=== PATIENT | male | born 1960 | race Caucasian/White ===

== ENCOUNTER 2016-05-28 05:19 | Inpatient (IN) | payer BC ==
[2016-05-12 13:21] VITALS: BMI 25.0
--- NOTE | 2016-05-12 14:35 | DIAGNOSTIC IMAGING REPORT ---
CHEST PREADMISSION(PA/LAT) CLINICAL HISTORY: Preoperative chest COMPARISON STUDY: No previous studies for comparison. FINDINGS: The cardiac and mediastinal contours are normal. There is no evidence of focal pulmonary consolidation. There is no evidence of failure. No pleural effusions are visualized.[ There is minor basilar interstitial thickening. IMPRESSION: Minor basilar interstitial thickening, likely chronic. No evidence of failure. No evidence of lobar consolidation Electronically signed by: Yogesh Joy M.D. 05/12/2016 2:34 PM
[2016-05-12 14:55] LABS: BASO % 0.3 %; BASO ABS # 0.03 K/uL (0-0.2); COMPLETE YES; EOS % 7.8 %; HEMATOCRIT 46.7 % (42-52); IG% 0.1 %; LYMPH % 21.7 %; LYMPH ABS # 1.87 K/uL (1.2-3.4); MEAN CORPUSCULAR HEMOGLOBIN 33.4 pg (25-34); MEAN CORPUSCULAR HGB CONC 35.5 g/dl (32-36); MEAN PLATELET VOLUME 11.2 fL (7.4-10.4); MONO % 8.6 %; NEUT % 61.5 %; PLATELET COUNT 194 K/uL (130-400); RED BLOOD COUNT 4.97 M/uL (4.7-6.1); WHITE BLOOD COUNT 8.61 K/uL (4.8-10.8)
[2016-05-12 15:08] LABS: URINE APPEARANCE CLEAR (CLEAR); URINE BILIRUBIN NEG (NEG); URINE COLOR YELLOW; URINE NITRITE NEG (NEG); URINE PH 6.5 (4.5-7.5); URINE SPECIFIC GRAVITY 1.009 (1.000-1.030); UROBILINOGEN NEG (NEG)
[2016-05-12 15:19] LABS: CALCIUM 8.9 mg/dl (8.5-10.1); CREATININE 0.91 mg/dl (0.60-1.40); POTASSIUM 3.9 mmol/L (3.5-5.1)
[2016-05-12 15:25] LABS: MANUAL MICROSCOPIC REQUIRED? NO; REVIEW REQ? NO
[~2016-05-28] VITALS: Ht 177.8 cm; Wt 81.2 kg
[2016-05-28] VITALS (8 sets, daily range): BP systolic 91–124; BP diastolic 52–72; PULSE 53–70; TEMP 36.3–36.9; O2SAT 92–97; Ht 177.8 cm; Wt 81.2 kg
[~2016-05-28 05:19] MED LIST: Pt states none
[2016-05-28] MEDS ORDERED: HEPARIN SOD 5000 UNIT/0.5 ML CARP SQ SCH (06:00)
[2016-05-28] MEDS ORDERED: CEFAZOLIN 2000 MG/60 ML D5W 60 ML IV SCH (06:00)
[2016-05-28] MEDS ORDERED: LACTATED RINGER'S 1000ML 1,000 ML IV SCH (06:00)
[2016-05-28] MEDS ORDERED: MIDAZOLAM HCL 1 MG/ML 2ML VIAL ONE (06:49)
[2016-05-28] MEDS ORDERED: FENTANYL CITRATE INJ 50 MCG/1 ML 2 ML VIAL ONE (06:49)
[2016-05-28] MEDS ORDERED: KETAMINE HCL INJ 50 MG/ML 10 ML VIAL ONE (06:49)
[2016-05-28] MEDS ORDERED: HYDROmorphone INJ 2 MG/ML SYR/VIAL ONE (06:50)
--- NOTE | 2016-05-28 07:05 | History & Physical Bridge Note ---
H&P Re-Evaluation Bridge Note: I have examined the patient, reviewed the History & Physical and in the interval since the performance of the History & Physical I have noted the following changes of clinical significance: No changes noted
[2016-05-28] MEDS ORDERED: FENTANYL CITRATE INJ 50 MCG/1 ML 2 ML VIAL IV PRN (07:30)
[2016-05-28] MEDS ORDERED: HYDROmorphone INJ 1 MG/ML SYR IV PRN ×2 (07:30→11:00)
[2016-05-28] MEDS ORDERED: EpHEDrine SULFATE INJ 50 MG/ML AMP IV PRN (07:30)
[2016-05-28] MEDS ORDERED: ONDANSETRON INJ 2 MG/ML 2 ML VIAL IV PRN ×2 (07:30→11:00)
[2016-05-28] MEDS ORDERED: ATROPINE SULFATE 0.1 MG/ML 5ML SYR IV PRN (07:30)
[2016-05-28] MEDS ORDERED: DEXAMETHASONE SOD INJ 4 MG/ML VIAL ONE (08:11)
[2016-05-28] MEDS ORDERED: PROPOFOL IV EMULSION 10 MG/ML 20 ML VIAL IV ONE (08:11)
[2016-05-28] MEDS ORDERED: EpHEDrine SULFATE 50MG/5ML SYR ONE (08:11)
[2016-05-28] MEDS ORDERED: GLYCOPYRROLATE INJ 0.2 MG/ML VIAL ONE (08:11)
[2016-05-28] MEDS ORDERED: ONDANSETRON INJ 2 MG/ML 2 ML VIAL ONE (08:11)
[2016-05-28] MEDS ORDERED: NEOSTIGMINE METHYLSULFATE 5 MG/5 ML SYR ONE (08:11)
[2016-05-28] MEDS ORDERED: ROCURONIUM BROMIDE 10 MG/ML 5 ML VIAL ONE ×2 (08:11→09:12)
[2016-05-28] MEDS ORDERED: METOCLOPRAMIDE HCL INJ 5 MG/ML 2 ML VIAL ONE (08:11)
[2016-05-28] MEDS ORDERED: LIDOCAINE HCL 2% 2 ML VIAL (20MG/ML) ONE (08:11)
[2016-05-28] MEDS ORDERED: SODIUM CHLORIDE 0.9% INJ 10 ML VIAL ONE (08:13)
[2016-05-28] MEDS ORDERED: BUPIVACAINE 0.5 % 5 MG/1 ML MPF 30ML VIAL INJ ONE (08:42)
[2016-05-28] MEDS ORDERED: FLOSEAL HEMOSTATIC MATRIX 10ML TOP ONE (10:29)
--- NOTE | 2016-05-28 10:55 | [facility] Post Operative Brief Note ---
Immediate Operative Summary Operative Date May 28, 2016. Pre-Operative Diagnosis cT1c [place] 3+3 Prostate cancer Post-Operative Diagnosis Same as preoperative diagnosis Procedure(s) Performed Laparoscopic Robot assisted radical retropubic prostatectomy, laparoscopic lysis of adhesions Brodie Surgeon Dr. Aj Turcios Surgical Supply Assistant Surgeon(s) NANETTE Durand Estimated Blood Loss 250 mL Findings Watertight anastomosis Specimens Permanent specimens A: Periprostatic fat B: Prostate and seminal vesicles Drains #10 CAMILLA drain, 18 fr hassan 10 cc H2O Anesthesia GAET + local Complication(s) None Disposition Recovery Room / PACU
[2016-05-28] MEDS ORDERED: OXYCODONE/ACETAMINOPHEN 7.5-325 TAB PO PRN (11:00)
[2016-05-28] MEDS ORDERED: OXYBUTYNIN CHLORIDE 5 MG TAB PO PRN (11:00)
[2016-05-28] MEDS ORDERED: KETOROLAC TROMETHAMINE 30 MG/ML VIAL IV. PRN (11:00)
[2016-05-28 11:21] LABS: HEMATOCRIT 45.6 % (42-52); MEAN CELL VOLUME 93.1 fL (80-100); MEAN CORPUSCULAR HEMOGLOBIN 33.9 pg (25-34); MEAN PLATELET VOLUME 11.1 fL (7.4-10.4); PLATELET COUNT 191 K/uL (130-400); WHITE BLOOD COUNT 14.99 K/uL (4.8-10.8)
[2016-05-28 11:28] LABS: MEAN CORPUSCULAR HGB CONC 36.4 g/dl (32-36)
[2016-05-28 11:50] LABS: BUN/CREATININE RATIO 18.2 (10-20); CALCIUM 8.4 mg/dl (8.5-10.1); CREATININE 0.94 mg/dl (0.60-1.40); POTASSIUM 4.1 mmol/L (3.5-5.1)
--- NOTE | 2016-05-28 12:19 | Anesthesiology Progress Note ---
Anesthesia Post Op Note Date & Time May 28, 2016 at 12:18 Vital Signs Pain Intensity: 2 Vital Signs Past 12 Hours Date Time Temp Pulse Resp B/P Pulse Ox O2 Delivery O2 Flow Rate FiO2 05/28/16 12:05 36.5 63 16 134/71 98 Nasal Cannula 2 05/28/16 11:55 36.5 63 16 134/71 97 Nasal Cannula 2 05/28/16 11:45 65 16 129/73 99 Nasal Cannula 2 05/28/16 11:35 69 16 133/99 100 Nasal Cannula 2 05/28/16 11:25 67 16 129/80 100 Mask 10 05/28/16 11:15 68 12 125/78 97 Mask 10 05/28/16 11:08 36.2 67 12 121/73 99 10 05/28/16 05:39 36.5 53 18 124/71 97 Room Air Notes Mental Status: alert / awake / arousable, participated in evaluation Pt Amnestic to Procedure: Yes Nausea / Vomiting: adequately controlled Pain: adequately controlled Airway Patency, RR, SpO2: stable & adequate BP & HR: stable & adequate Hydration State: stable & adequate Anesthetic Complications: no major complications apparent
--- NOTE | 2016-05-28 13:23 | OPERATIVE REPORT ---
DATE OF OPERATION: 05/28/2016 PREOPERATIVE DIAGNOSIS: Clinical T1c, [place] 3+3 adenocarcinoma of the prostate. POSTOPERATIVE DIAGNOSIS: Same. PROCEDURES: Laparoscopic lysis of adhesions (25 minutes), robotic-assisted laparoscopic radical retropubic prostatectomy with bilateral nerve sparing dissection. SURGEON: Dr. Aj Turcios. OB/GYN NURSE: NANETTE Durand. ANESTHESIA: General anesthesia with endotracheal intubation plus local at port sites. ESTIMATED BLOOD LOSS: 250 mL. URINE OUTPUT: 350 mL. IV FLUIDS: 1300 mL of crystalloid. SPECIMENS SENT TO PATHOLOGY: Periprostatic fat, prostate plus seminal vesicles. DRAINS LEFT IN PLACE: Include an 18 Khmer silicone Gonzáles catheter to gravity drainage with 10 mL of sterile water in the balloon and left lower quadrant #10 CAMILLA drain to gravity drainage. FINDINGS: Watertight anastomosis, excellent hemostasis after completion, copious right lower quadrant bowel adhesions to the anterior abdominal wall requiring laparoscopic lysis of adhesions prior to initiation of robotic surgery. COMPLICATIONS: None. BRIEF HISTORY: Mr. Laura is a pleasant 56-year-old male who has been diagnosed with [place] 3+3 adenocarcinoma of the prostate as an outpatient by my partner, Dr. Yovany Matute. Please see H\T\P for further details. After discussion of risks and benefits of various forms of intervention, she has decided upon a robotic prostatectomy to manage his disease and is being admitted for this purpose. Intravenous cephalosporins are provided for antibiotic coverage and subcutaneous heparin and SCDs are used for DVT prophylaxis. DESCRIPTION OF PROCEDURE: The patient was properly identified and brought to the operative suite. After identification of appropriate consent on the chart, general anesthesia with endotracheal intubation was initiated. The patient was prepped and draped in a standard fashion for this procedure. time study engineer-out procedure was followed. A 12 mm incision was made after instillation of local anesthesia in the supraumbilical location and abdomen was entered under direct visualization using a visual obturator and a 0 degrees lens. No evidence of bowel or intra-abdominal injury on entry into the abdomen was appreciated. Abdomen was insufflated to 15 mmHg. Left side of the abdomen was noted to be clear, but in the right lower quadrant numerous adhesions of the bowel and omentum to the anterior abdominal wall within the surgical field for robotic prostatectomy were appreciated. Two left-sided 7 mm robotic ports were placed and these were used along with cold scissors and Kittner to remove the adhesions from the anterior abdominal wall. Ports were placed on the right hand side in the form of a 7 mm robotic port, 12 mm technology assistant port and 5 mm technology assistant port in a staged fashion with each being inserted at the area was cleared. After this was completed, some residual right upper quadrant adhesions were appreciated but these were left in situ as they were no longer within the surgical field. Some left lower quadrant adhesions to the bowel outside the plane of the surgical dissection were also left as is. A total of 25 minutes was used for placement of the ports and laparoscopic lysis of adhesions. After this was complete robot was brought in and docked. A 0 degrees lens was used to drop the bladder down to the level of the pubic arch. The pelvis was entered and the prostate was defatted. Fat removed from the prostate gland was sent as periprostatic fat for pathologic analysis. A well-defined endopelvic fascia was sharply entered on both sides using hook cautery and blunt dissection was carried out to the level of the apex of the prostate. The neurovascular bundles were identified and nerve sparing dissection was initiated. A dorsal vein was skeletonized and puboprostatic ligaments were incised and relaxed. A qazifr-[id number]-vhwrf suture using an 0 Vicryl suture on a CT1 needle was used to control the dorsal venous complex in a [id number]-[id number] fashion. After this was complete, a 30 degree down lens was placed and fourth arm was used to place the bladder neck on traction. Bladder neck was dissected down to the level of the Gonzáles catheter bluntly for the most part and the catheter was brought in via the anterior vesicotomy and used for anterior traction on the prostate gland. Posterior bladder neck was divided and dropped down to the level of the seminal vesicles and vas deferens in the midline. An excellent aperture bladder neck with the ureteral orifices were removed from the level of dissection were appreciated. The vas was circumscribed and divided on both sides. Seminal vesicles were dissected free using cautery and bipolar as necessary. Some bleeding from the feeding vessel of the seminal vesicle deep on the right hand side was responsible for the majority of the blood loss during the case. Cold scissors were used to drop the rectum down to the level of the apex of the prostate and the pedicles were skeletonized. A well vascularized prostate was appreciated. Using Weck clips and bipolar as necessary the prosthetic pedicles were clipped and divided. At the level of the neurovascular bundles, cold scissors and clips were used as necessary to complete a full nerve sparing dissection on both sides down to the level of the apex. Bipolar was used judiciously for bleeding vessels as necessary. This dissection was carried out on both sides with excellent nerve sparing appreciated. After this was complete at the level of the apex, the Gonzáles catheter was replaced and the dorsal vein was divided down to the level of the urethra. Urethra was skeletonized and divided. Rectourethralis fibers were removed and completion of nerve sparing dissection was undertaken at this point. Good hemostasis was appreciated from the level of the rectum. The rectum was insufflated with air under saline irrigation and noted to be free of injury. A 10 mL of FloSeal tissue sealant were placed on the prostatic bed and attention was turned to the bladder neck where good urine production with excellent repair aperture were noted. Using a double armed V-Loc running suture, a circumferential running anastomosis to an excellent urethral stump was performed. Silicone Gonzáles catheter was visualized entering the bladder prior to completion of closure. The anastomosis was tested with greater than 120 mL of sterile water in the bladder under stress with no evidence of leak. Ten mL of sterile water were placed in the balloon and catheter was placed to gravity drainage. Small oozing vessels were appreciated and controlled using bipolar cautery as necessary. After completion of the anastomosis and additional 10 mL of FloSeal tissue sealant for additional hemostasis was performed. After this, excellent hemostasis within the pelvis was noted. Fourth arm was removed and a #10 CAMILLA drain was brought in via the fourth arm port. This was placed within the pelvis while avoiding placing it directly over the anastomosis. Robotic instruments were removed and robot was dedocked and removed. The camera was brought in via the 12 mm technology assistant port and string to the EndoCatch bag were brought out through the supraumbilical port. This was enlarged sufficiently to allow for removal of the specimen bag with no difficulties. Fascia was then closed using a 0 Vicryl suture on a UR-5 needle. Skin incisions were closed using 4-0 Monocryl and Dermabond as necessary. A 2-0 silk was used to secure the drain in place. Excess carbon dioxide gas had been removed from the abdomen prior to completion of closure. Anesthesia was reversed. The patient was transferred to recovery room in stable condition. FOLLOWUP CARE: The patient will be transferred to the floor for standard postoperative management. I attest to the content of the Intraoperative Record and any orders documented therein. Any exceptions are noted below. [facility]
[2016-05-28] MEDS: LACTATED RINGER'S 1000ML 1,000 ML IV SCH ×2 (13:49→21:51)
[2016-05-28] MEDS: ACETAMINOPHEN 500 MG TAB PO SCH ×3 (13:49→23:46)
[2016-05-28] MEDS: CEFAZOLIN IV 2,000 MG in DEXTROSE 5% 50ML 50 ML IV SCH ×2 (15:49→23:46)
[2016-05-28] MEDS ORDERED: NURSING VERBAL MED ORDER ONE (20:00)
[2016-05-28] MEDS ORDERED: METOCLOPRAMIDE HCL INJ 5 MG/ML 2 ML VIAL IV PRN (20:00)
[2016-05-28] MEDS: DOCUSATE SODIUM 100 MG CAP PO SCH (20:50)
[2016-05-28] MEDS: HEPARIN SOD 5000 UNIT/0.5 ML CARP SQ SCH (20:50)
[2016-05-29 03:36] VITALS: BP 95/57; PULSE 55; TEMP 36.7; O2SAT 95
[2016-05-29] MEDS: ACETAMINOPHEN 500 MG TAB PO SCH ×2 (06:30→13:56)
--- NOTE | 2016-05-29 07:39 | Anesthesiology Progress Note ---
Anesthesia Post Op Note Date & Time May 29, 2016 at 07:38 Vital Signs Vital Signs Past 12 Hours Date Time Temp Pulse Resp B/P Pulse Ox O2 Delivery O2 Flow Rate FiO2 05/29/16 03:36 36.7 55 16 95/57 95 Room Air 05/29/16 00:04 Room Air 05/28/16 23:34 36.9 57 16 91/52 92 Room Air Notes Mental Status: alert / awake / arousable, participated in evaluation Pt Amnestic to Procedure: Yes Nausea / Vomiting: adequately controlled Pain: adequately controlled Airway Patency, RR, SpO2: stable & adequate BP & HR: stable & adequate Hydration State: stable & adequate Anesthetic Complications: no major complications apparent
[2016-05-29 07:46] LABS: BASO % 0.1 %; BASO ABS # 0.01 K/uL (0-0.2); COMPLETE YES; EOS % 0.4 %; HEMATOCRIT 36.7 % (42-52); IG% 0.3 %; LYMPH % 11.7 %; LYMPH ABS # 1.32 K/uL (1.2-3.4); MEAN CORPUSCULAR HEMOGLOBIN 32.6 pg (25-34); MEAN CORPUSCULAR HGB CONC 35.4 g/dl (32-36); MEAN PLATELET VOLUME 11.5 fL (7.4-10.4); MONO % 10.3 %; NEUT % 77.2 %; PLATELET COUNT 159 K/uL (130-400); RED BLOOD COUNT 3.99 M/uL (4.7-6.1)
[2016-05-29 08:01] LABS: BUN/CREATININE RATIO 19.6 (10-20); CALCIUM 8.3 mg/dl (8.5-10.1); CREATININE 0.73 mg/dl (0.60-1.40); POTASSIUM 3.9 mmol/L (3.5-5.1)
[2016-05-29 08:24] VITALS: BP 91/49; PULSE 52; TEMP 36.8; O2SAT 98
[2016-05-29] MEDS: LACTATED RINGER'S 1000ML 1,000 ML IV SCH (08:54)
[2016-05-29] MEDS: DOCUSATE SODIUM 100 MG CAP PO SCH (08:54)
[2016-05-29] MEDS: CEFAZOLIN IV 2,000 MG in DEXTROSE 5% 50ML 50 ML IV SCH (08:54)
[2016-05-29] MEDS: HEPARIN SOD 5000 UNIT/0.5 ML CARP SQ SCH (09:02)
--- NOTE | 2016-05-29 10:09 | Progress Note ---
Subjective Date of Service: May 29, 2016. Subjective Pt evaluation today including: conversation w/ patient, conversation w/ family , physical exam, chart review, lab review Voiding: hassan catheter in place 56 year old male POD #1 robotic assisted laparoscopic prostatectomy. He is doing well post op. Noted nausea last evening but was medicated and feeling better. Ambulating in hallways. Tolerating clear liquids and passing flatus. Pain is controlled with Toradol and Tylenol. Hassan intact draining light east red urine. No clots. CAMILLA draining about 250 ml serosang fluid AFVSS- slightly bradycardic. White count is coming down. Note his Hgb has dropped from 16.6 to 13.0. Review of Systems Constitutional: No chills, No fever Eyes: No worsening of vision ENT: No hearing loss Respiratory: No cough, No dyspnea on exertion, No shortness of breath, No wheezing Cardiac: No chest pain Abdomen: + nausea, + see HPI, No pain Musculoskeletal: No joint pain Male : + see HPI Neurologic: No memory loss Psychiatric: No depression symptoms Endo: No fatigue Skin: No rash Objective Vital Signs Date Time Temp Pulse Resp B/P Pulse Ox O2 Delivery O2 Flow Rate FiO2 05/29/16 08:24 36.8 52 16 91/49 98 Room Air 05/29/16 08:00 Room Air 05/29/16 03:36 36.7 55 16 95/57 95 Room Air 05/29/16 00:04 Room Air 05/28/16 23:34 36.9 57 16 91/52 92 Room Air 05/28/16 16:49 36.3 69 16 103/67 94 Room Air 05/28/16 15:45 36.4 67 16 100/64 95 Room Air 05/28/16 15:30 Room Air 05/28/16 14:42 70 16 105/68 94 Room Air 05/28/16 14:16 36.3 65 16 104/66 95 Room Air 05/28/16 14:15 Room Air 05/28/16 13:47 67 18 115/72 94 Room Air 05/28/16 12:41 Room Air 05/28/16 12:28 36.4 65 18 115/72 94 Room Air 05/28/16 12:05 36.5 63 16 134/71 98 Nasal Cannula 2 05/28/16 11:55 36.5 63 16 134/71 97 Nasal Cannula 2 05/28/16 11:45 65 16 129/73 99 Nasal Cannula 2 05/28/16 11:35 69 16 133/99 100 Nasal Cannula 2 05/28/16 11:25 67 16 129/80 100 Mask 10 05/28/16 11:15 68 12 125/78 97 Mask 10 05/28/16 11:08 36.2 67 12 121/73 99 10 Physical Exam General Appearance: WD/WN, no apparent distress Eyes: normal inspection ENT: hearing grossly normal Neck: supple, no JVD Respiratory/Chest: no respiratory distress, no accessory muscle use Abdomen: soft Extremities: normal range of motion Neurologic/Psychiatric: alert, normal mood/affect, oriented x 3 Skin: normal color, warm/dry, no rash Laboratory Results Last 24 Hours Test 05/28/16 11:12 05/29/16 06:50 White Blood Count 14.99 K/uL 11.30 K/uL Red Blood Count 4.90 M/uL 3.99 M/uL Hemoglobin 16.6 g/dL 13.0 g/dL Hematocrit 45.6 % 36.7 % Mean Corpuscular Volume 93.1 fL 92.0 fL Mean Corpuscular Hemoglobin 33.9 pg 32.6 pg Mean Corpuscular Hemoglobin Concent 36.4 g/dl 35.4 g/dl RDW Standard Deviation 42.9 fL 42.3 fL RDW Coefficient of Variation 12.6 % 12.5 % Platelet Count 191 K/uL 159 K/uL Mean Platelet Volume 11.1 fL 11.5 fL Sodium Level 141 mmol/L 138 mmol/L Potassium Level 4.1 mmol/L 3.9 mmol/L Chloride Level 106 mmol/L 104 mmol/L Carbon Dioxide Level 27 mmol/L 24 mmol/L Anion Gap 8.0 mmol/L 10.0 mmol/L Blood Urea Nitrogen 17 mg/dl 14 mg/dl Creatinine 0.94 mg/dl 0.73 mg/dl Est Creatinine Clear Calc Drug Dose 88.4 ml/min 113.9 ml/min Estimated GFR () 103.2 118.5 Estimated GFR (Non- 89.0 102.2 BUN/Creatinine Ratio 18.2 19.6 Random Glucose 131 mg/dl 94 mg/dl Calcium Level 8.4 mg/dl 8.3 mg/dl Neutrophils (%) (Auto) 77.2 % Lymphocytes (%) (Auto) 11.7 % Monocytes (%) (Auto) 10.3 % Eosinophils (%) (Auto) 0.4 % Basophils (%) (Auto) 0.1 % Neutrophils # (Auto) 8.74 K/uL Lymphocytes # (Auto) 1.32 K/uL Monocytes # (Auto) 1.16 K/uL Eosinophils # (Auto) 0.04 K/uL Basophils # (Auto) 0.01 K/uL Immature Granulocyte % (Auto) 0.3 % Immature Granulocyte # (Auto) 0.03 K/uL Assessment and Plan s/p RALP Pt doing well post op Will increase diet If tolerating diet and pain is controlled okay to discharge after lunch. Hassan to leg and cath care teaching. D/C CAMILLA and IVF only after tolerating lunch and prior to discharge. Scripts for cipro, oxybutynin, zofran, toradol and colace on his chart.
[2016-05-29] MEDS ORDERED: ONDA4TAB10 SL (10:16)
[2016-05-29] MEDS ORDERED: KETO10TA PO (10:16)
[2016-05-29] MEDS ORDERED: DTR5 PO (10:16)
[2016-05-29] MEDS ORDERED: CIPR-255 PO (10:16)
[2016-05-29] MEDS ORDERED: CLC100 PO (10:16)
--- NOTE | 2016-05-29 10:18 | Discharge Instructions ---
Discharge Instructions Admission Reason for Admission: Prostate Cancer Discharge Discharge Diagnosis / Problem: Prostate Cancer Discharge Goals Goal(s): Improve function, Increase independence, Prevent Disease Progression Activity Recommendations Activity Limitations: per Instructions/Follow-up section . Instructions / Follow-Up Instructions / Follow-Up 1. Do not lift >15lbs x 6 weeks. 2. No heavy exercise x 6 weeks. You may engage in light activity such as walking and stairs as tolerated. 3. No sexual intercourse until cleared by Dr. Turcios or Dr. Hahn. 4. Do not drive x [address] while taking narcotics. 5. Finish all of the antibiotic you have been prescribed. 6. Immediately call our office at [phone] if your catheter is removed for any reason. 7. Follow-up as scheduled. Please call our office at [phone] if you need to reschedule for any reason. . Current Hospital Diet Hospital Diet(s): Regular Diet Discharge Diet Recommended Diet: Regular Diet Procedures Procedures Performed: Laparoscopic Robot assisted radical retropubic prostatectomy, laparoscopic lysis of adhesions DaVinci Pending Studies Studies pending at discharge: no Medical Emergencies . Who to Call and When: Medical Emergencies: If at any time you feel your situation is an emergency, please call 911 immediately. . Non-Emergent Contact Non-Emergency issues call your: Primary Care Provider, Urologist Call Non-Emergent contact if: temperature is above 101 . . "Provider Documentation" section prepared by Rosio Rivas. VTE Core Measure Inpt VTE Proph given/why not?: Unfractionated heparin SQ, SCD's
[2016-05-29 11:13] VITALS: BP 101/61; PULSE 55; TEMP 36.7; O2SAT 97
[2016-05-29] MEDS ORDERED: ACETAMINOPHEN 500 MG TAB PO ONE (13:46)
[2016-05-29 13:49] VITALS: BP 101/61; PULSE 55; TEMP 36.7; O2SAT 97
--- NOTE | 2016-06-09 11:52 | DISCHARGE SUMMARY ---
ADMITTING DIAGNOSIS: [place] 3+3 adenocarcinoma of the prostate. DISCHARGE DIAGNOSIS: Same. PROCEDURES OVER THE COURSE OF ADMISSION: Include a robot-assisted laparoscopic radical retropubic prostatectomy on 05/28/2016. ADMITTING ATTENDING: Dr. Aj Turcios. COMPLICATIONS: None. BRIEF HISTORY: Mr. Laura is a pleasant 56-year-old male who has seen my partner Dr. Yovany Matute in the past and been diagnosed with [place] 3+3 adenocarcinoma of the prostate after prostate biopsy for an elevated PSA. Please see H\T\P for further details. After discussion of risks and benefits of various forms of intervention, he has decided upon a robotic prostatectomy to manage his disease. Seeing his low-grade disease, nerve sparing dissection with no lymph node dissection is planned. He is being admitted for this purpose. HOSPITAL COURSE: The patient was admitted to the hospital on 05/28/2016 after uncomplicated robotic prostatectomy. Please see operative report for further details. Over the course of the patient's admission, diet and activity were rapidly advanced. By postoperative day #1, the patient's lab work was stable. He was tolerating a p.o. diet, ambulatory in the hallways and comfortable on oral pain medication. Please see progress notes for further details. He was considered stable for discharge home with Gonzáles catheter in place after removal of his CAMILLA tube on postoperative day #1. DISCHARGE INSTRUCTIONS: Please see discharge instruction list and medication list for discharge meds and activity limitations. Postoperative appointment with trial of void and pathology discussion are confirmed. The patient is instructed to contact our service should he note any fevers, chills, nausea, vomiting or other significant difficulties in the postoperative period.
== END 2016-05-29 14:08 | disposition home or self-care (01) | DRG 714 ==
LOC: ENRESERVDT → ENRESERVTM → C.ACU 05:19 → C.MSW 11:01
PROVIDERS: ADMIT Urology; ATTEND Urology
PROC: 8E0W4CZ Robotic Assisted Procedure of Trunk Region, Percutaneous Endoscopic Approach (ICD-10-PCS; 2016-05-28)
PROC: 0DNW4ZZ Release Peritoneum, Percutaneous Endoscopic Approach (ICD-10-PCS; 2016-05-28)
PROC: 0VT08ZZ Resection of Prostate, Via Natural or Artificial Opening Endoscopic (ICD-10-PCS; principal; 2016-05-28 07:30)
DX: C61 Malignant neoplasm of prostate (principal); K66.0 Peritoneal adhesions (postprocedural) (postinfection)

== ENCOUNTER → 2016-07-22 | Outpatient (CLI) | payer BC ==
[~2016-07-22] MED LIST changes: +CIPR-255 PO; +CLC100 PO; +DTR5 PO; +KETO10TA PO; +ONDA4TAB10 SL
[2016-07-22 13:19] LABS: BLOOD UREA NITROGEN 17 mg/dl (7-18); BUN/CREATININE RATIO 19.8 (10-20); CREATININE 0.86 mg/dl (0.60-1.40)
[2016-07-22 13:23] LABS: PROSTATE SPECIFIC ANTIGEN < 0.010 ng/ml (0.000-4.000)
== END | disposition home or self-care (01) ==
LOC: C.LAB1850 11:57
PROVIDERS: ATTEND Urology
DX: C61 Malignant neoplasm of prostate (principal); R32 Unspecified urinary incontinence